=== PATIENT | female | born 1990 | race Caucasian/White ===

== ENCOUNTER 2019-02-12 14:09 | Outpatient (CLI) | payer OTHER ==
[~2019-02-12] VITALS: Ht 160 cm; Wt 64.5 kg
[2019-02-12 15:06] VITALS: BP 124/72; PULSE 104; Ht 160 cm; Wt 64.5 kg
[2019-02-12] MEDS ORDERED: PNV11TAB PO (15:08)
--- NOTE | 2019-02-12 18:44 | PN ---
Triage Information Date/Time Reason for visit: Abdominal and pelvic pain/pressure and urinary frequency Weeks of Gestation 32 weeks and 5 days /Para -0-1-2 Diabetes: none Hypertention: none Objective Vital Signs Date Temp Pulse Resp B/P (MAP) Pulse Ox O2 O2 Flow FiO2 Time Delivery Rate 02/12/19 98.4 104 124/72 15:06 (89) Heart Rate: 140's Contractions: None Results/Medications Results 24 hrs Laboratory Tests Test 02/12/19 14:50 02/12/19 15:50 Urine Color YELLOW Urine Clarity CLOUDY A Urine pH 6.0 Urine Specific [place] 1.013 Urine Ketones TRACE A Urine Nitrite NEGATIVE Urine Bilirubin NEGATIVE Urine Urobilinogen NEGATIVE Urine Leukocyte Esterase 3+ H Urine Microscopic RBC 5 Urine Microscopic WBC 16 H Urine Squamous Epithelial Cells MODERATE Urine Bacteria FEW A Urine Hemoglobin NEGATIVE Urine Glucose NEGATIVE Urine Total Protein NEGATIVE Fibronectin NEGATIVE Imaging Results The cervix measures 2.4 cm in length. There is a single live intrauterine gestation. Cardiac activity is present with 133 beats per minute. There is a vertex presentation. The placenta is fundal. There is no evidence of placental abruption. ANABEL = 20.9 cm. Biophysical profile: movement 2/2 tone 2/2. breathing 2/2 ANABEL 2/2 Total 05/08 RPTAT: AA . IMPRESSION: Normal biophysical profile. Cervix measures 2.4 cm in length. Borderline polyhydramnios. Disposition: Discharge Assessment/Plan 29-year-old -0-1-2 at 32 weeks and 5 days complaining of abdominal and pelvic pain/pressure with urinary frequency. She states good movement. She denies nausea, vomiting, shortness of breath, chest pain, headache, visual changes, vaginal bleeding or LOF. -FHR: No sign of metabolic acidosis- Category I -Contractions: None -SVE: 10/30/-2/cephalic/intact -Urinalysis with 16 white BC and 3+ leukocyte Estrace. Urine culture ordered. Macrobid and Pyridium given. Recommend increase fluid intake and have follow-up in 2 days to review urine culture results with her primary OB - fibronectin negative, cervical length 2.4 cm -Ultrasound performed: ANABEL of 20.9, BPP 8 out of 8 -Symptoms and sign of labor, preeclampsia, kick count discussed with patient, she voiced understanding. All of her questions answered. -Patient was discharged home in stable condition with the appropriate discharge instructions provided. I would like patient to have close follow-up with her primary physician or outpatient clinic in 1-2 days or return to triage for worsening symptoms or any other urgent concerns. RENETTA TY February 12, 2019 18:44
--- NOTE | 2019-02-12 19:02 | TRIAGE ---
OB Triage Datetime Report Generated by CPN: 02/12/2019 19:02 Datetime: 02/12/2019 18:12 Stage of : OB Triage Datetime: 02/12/2019 18:03 Labor Evaluation Frequency: 0 Monitor Mode: External Pattern: Normal: <= 5 Contractions in 10 Minutes Resting Tone Bergman: Relaxed Heart Rate FHR Baseline Rate: 135 Monitor Mode: External US Variability: Moderate 6-25 bpm Accelerations: 10X10 Decelerations: None Category: Category I Pain Assessment Pain Scale: 3 Pain Presence: Constant Pain Type: Pressure Pain Location: Perineum Pain Goal: 3 Pain Relief Measures: Comfort Measures Datetime: 02/12/2019 17:41 Stage of : OB Triage Datetime: 02/12/2019 16:55 Labor Evaluation Frequency: x1 Monitor Mode: External Duration (sec)2399: 60 Quality: Mild Pattern: Normal: <= 5 Contractions in 10 Minutes Resting Tone Bergman: Relaxed Heart Rate FHR Baseline Rate: 125 Monitor Mode: External US Variability: Moderate 6-25 bpm Accelerations: 10X10 Decelerations: None Category: Category I Pain Assessment Pain Scale: 3 Pain Presence: Intermittent Pain Type: Cramping Pain Goal: 3 Pain Relief Measures: Comfort Measures Datetime: 02/12/2019 15:51 Vaginal Exam Dilatation (cms): 1.0 Effacement (%): 30 Station: -2 Exam By: s hilary Vaginal Bleeding: None Cervix, Consistency: Soft Cervix, Position: Posterior Datetime: 02/12/2019 15:50 Labor Evaluation Frequency: 6-7 Monitor Mode: External Duration (sec)2399: 70-80 Quality: Mild Pattern: Normal: <= 5 Contractions in 10 Minutes Resting Tone Bergman: Relaxed Heart Rate FHR Baseline Rate: 135 Monitor Mode: External US Variability: Moderate 6-25 bpm Accelerations: 10X10 Decelerations: None Category: Category I Pain Assessment Pain Scale: 3 Pain Presence: Intermittent Pain Type: Cramping Pain Location: Perineum Pain Goal: 3 Pain Relief Measures: Comfort Measures Datetime: 02/12/2019 15:30 Stage of : OB Triage Datetime: 02/12/2019 15:01 Stage of : OB Triage Assessment Type: Triage Maternal Assessment Level of Consciousness: Fully Conscious DTR's/Clonus: DTRs 2+; No Clonus Headache: Denies Blurred Vision: No Respiratory Effort: Unlabored; Regular Rhythm; Equal Expansion Breath Sounds, Left: Clear and Equal Breath Sounds, Right: Clear and Equal Nausea/Vomiting: Denies RUQ Epigastric Pain: Denies Facial Edema: None Temperature Route: Axillary Fall Risk Assessment History of Falling: (0) No Secondary Diagnosis: (0) No Ambulatory Aid: (0) Bedrest/Nurse Assist IV Therapy: (0) No Gait: (0) Normal/Bedrest/Immobile Mental Status: (0) Oriented to Own Ability Fall Score: 0 Fall Risk Score Definition: No Risk: No action required Labor Evaluation Frequency: X1 Monitor Mode: External Duration (sec)2399: 60 Quality: Mild Pattern: Normal: <= 5 Contractions in 10 Minutes Heart Rate FHR Baseline Rate: 135 Monitor Mode: External US Variability: Moderate 6-25 bpm Accelerations: 10X10 Decelerations: None Category: Category I Pain Assessment Pain Scale: 3 Pain Presence: Intermittent (Annotations: WALKING) Pain Type: Pressure Pain Location: Perineum Datetime: 02/12/2019 14:58 Time of Arrival: 02/12/2019 13:50 EGA: 32.6 Arrived By: Ambulatory Arrived From: Home Chief Complaint: C/O UC'S DURING THE NIGHT, YELLOW DISCHARGE, PELVIC PRESSURE, FREQUENCY/URGENCY UR INATION, DENIES BLEEDING /LEAKING Movement: Present Contractions: Occasional Contractions: X1 Rupture of Membranes: Denies Vaginal Bleeding: None Vaginal Discharge: Present Recent Sexual Intercouse: Denies Abdominal Trauma: Not Applicable Patient Complaints: Cramping Time Provider Notified: 02/12/2019 15:30 Provider Notified: reyes Initial Plan: MONITOR,UA C_S, FFN, VE, CL BPP
== END 2019-02-12 18:26 | disposition home or self-care (01) ==
LOC: OBT 14:09 → L-D 14:17 → OBT 18:26
PROVIDERS: ATTEND Specialist
DX: O40.3XX0 Polyhydramnios, third trimester, not applicable or unspecified (principal); O26.893 Other specified pregnancy related conditions, third trimester; R10.9 Unspecified abdominal pain; R10.2 Pelvic and perineal pain; R35.0 Frequency of micturition; Z3A.32 32 weeks gestation of pregnancy
CPT/HCPCS: 76817; 76818; 81001; 82731; 87086; G0463